=== PATIENT | male | born 1980 | race Caucasian/White ===

== ENCOUNTER 2017-01-07 15:56 | Emergency (ER) | payer MEDICAID, OTHER ==
[2017-01-07 16:11] VITALS: TEMP 97.5
--- NOTE | 2017-01-07 18:29 | C.PDOC ---
History Of Present Illness 36 y/o male presents to ED with complaints of sudden severe pain to posterior right leg. Pt is a baseball coach, and states he was running when he suddenly had severe pain to posterior right leg. Pt states he felt "like he got hit with a bat" but didn't, pain 10/10 burning sensation. Pain at mid calf radiating to mid ankle. Denies any other trauma, headache, neck pain or any other complaints. Time Seen by Provider: 01/07/17 17:10 Chief Complaint (Nursing): Lower Extremity Problem/Injury History Per: Patient History/Exam Limitations: no limitations Onset/Duration Of Symptoms: Hrs Current Symptoms Are (Timing): Still Present Severity: Severe Pain Scale Rating Of: 10 Recent travel outside of the [place]: No Past Medical History Reviewed: Historical Data, Nursing Documentation, Vital Signs Vital Signs: Last Vital Signs Temp 97.5 F L 01/07/17 16:08 Pulse 81 01/07/17 16:08 Resp 20 01/07/17 16:08 BP 131/93 H 01/07/17 16:08 Pulse Ox 97 01/07/17 18:31 Family History: States: Unknown Family Hx - Social History Hx Alcohol Use: Yes Hx Substance Use: No - Immunization History Hx Tetanus Toxoid Vaccination: No Hx Influenza Vaccination: No Hx Pneumococcal Vaccination: No Review Of Systems Except As Marked, All Systems Reviewed And Found Negative. Constitutional: Negative for: Fever, Chills Musculoskeletal: Positive for: Leg Pain (right posterior leg pain). Negative for: Neck Pain Neurological: Negative for: Headache Physical Exam - Physical Exam Appears: Non-toxic, In Acute Distress (painful) Skin: Warm, Dry, No Rash Head: Atraumatic, Normacephalic Extremity: Tenderness (right lower posterior calf, normal Gage test), Capillary Refill (<2 seconds), No Deformity, No Swelling Pulses: Right Dorsalis Pedis: Normal Neurological/Psych: Oriented x3, Normal Speech, Normal Cognition, Normal Motor, Normal Sensation ED Course And Treatment O2 Sat by Pulse Oximetry: 97 (room air) Pulse Ox Interpretation: Normal Progress Note: Likely Diagnosis: achilles tendon rupture or partial tear. Plan : tramadol, MRI Disposition Counseled Patient/Family Regarding: Studies Performed, Need For Followup - Disposition Disposition Time: 18:35 Condition: GUARDED - POA Present On Arrival: None - Clinical Impression Clinical Impression: Achilles tendon sprain - Scribe Statement The provider has reviewed the documentation as recorded by the Aaronibe Anup Johnson Provider Attestation: All medical record entries made by the Aaronibe were at my direction and personally dictated by me. I have reviewed the chart and agree that the record accurately reflects my personal performance of the history, physical exam, medical decision making, and the department course for this patient. I have also personally directed, reviewed, and agree with the discharge instructions and disposition. Physician Patient Turnover Patient Signed Over To: Zuleyka Metz Handoff Comments: In MRI, needs crutches, Ortho F/U
[2017-01-07 20:37] VITALS: BP 124/75; PULSE 78; RESP 18; O2SAT 98
--- NOTE | 2017-01-08 11:48 | MRI ---
PROCEDURE: HISTORY: trauma, muscle tear COMPARISON: None TECHNIQUE: Noncontrast FINDINGS: There is complete tear of the Achilles tendon roughly 5 centimeters from the calcaneal insertion with a roughly 4 millimeter fluid gap. There is no retraction. There is extensive edema in the retro Achilles region and in Kager's fat. The posterior tibial tendons, peroneus tendons anterior tibial tendons are intact. The inferior syndesmotic ligaments and talofibular ligaments are intact. The deltoid and calcaneofibular ligaments are intact. The sinus tarsi and plantar fascia are unremarkable. IMPRESSION: Complete tear of the Achilles tendon roughly 5 centimeters from the calcaneal insertion with a roughly 4 millimeter fluid gap.
== END 2017-01-07 20:37 | disposition home or self-care (01) ==
LOC: C.ER 15:56
DX: S86.011A Strain of right Achilles tendon, initial encounter (principal); X58.XXXA Exposure to other specified factors, initial encounter; Y93.02 Activity, running